=== PATIENT | female | born 1960 | race Caucasian/White ===

== ENCOUNTER 2022-03-28 14:41 | Emergency (ER) | payer BC ==
[~2022-03-28] VITALS: Ht 149.9 cm; Wt 3.6 kg
[2022-03-28 14:48] VITALS: BP 140/75
--- NOTE | 2022-03-28 14:56 | NUR ---
PT AMB TO BED 11.
--- NOTE | 2022-03-28 15:49 | NUR ---
FLU AND COVID SWAB COLLECTED. HANDED TO ANTICHECKING [employer] COMFORT AT BEDSIDE.
--- NOTE | 2022-03-28 15:50 | NUR ---
XRAY AT BEDSIDE.
[2022-03-28 15:58] LABS: BASOPHILS % (AUTO) 0.6 % (0.0-2.0); EOSINOPHILS % (AUTO) 0.7 % (0.0-4.0); HEMOGLOBIN 13.4 g/dL (12.0-16.0); LYMPHOCYTES # (AUTO) 2.6 K/uL (2.5-16.5); MEAN CORPUSCULAR HEMOGLOBIN 30 pg (27-31); MEAN CORPUSCULAR HGB CONC 34 g/dL (33-37); MONOCYTES # (AUTO) 0.4 K/uL (0.8-1.0); MONOCYTES % (AUTO) 5.6 % (1.7-9.3); NEUTROPHILS # (AUTO) 4.1 K/uL (1.8-7.7); NEUTROPHILS % (AUTO) 57.1 % (42.2-75.2); PLATELET COUNT (AUTO) 307 K/uL (140-450); RED BLOOD CELL COUNT(AUTO) 4.53 MIL/uL (4.20-5.40); RED CELL DISTRIBUTION WIDTH 15.3 % (11.6-13.7); WHITE BLOOD COUNT (AUTO) 7.1 K/uL (4.8-10.8)
--- NOTE | 2022-03-28 16:19 | NUR ---
61F PRESENTS TO ED WITH COMPLAINT OF RIGHT UPPER LEG PAIN. REPORTS 8/10 PAIN WITH AMBULATION AND MOVEMENT OF EXTREMITY. PT WAS SEEN AT CLINIC TODAY AND REFERRED TO ED TO RULE OUT DVT. NO REDNESS, SWELLING NOTED. DENIES SOB, CP, DENIES PRIOR HISTORY OF DVT. PT REPORTS SHE TAKES MOTRIN WITH TEMPORARY RELIEF.
[2022-03-28 16:22] LABS: ALBUMIN 3.2 g/dL (3.4-5.0); ANION GAP 14.2 (8-16); CARBON DIOXIDE 23.4 mmol/L (21-32); CREATININE 0.6 mg/dL (0.6-1.3); POTASSIUM 3.6 mmol/L (3.5-5.1); TOTAL BILIRUBIN 0.3 mg/dL (0.0-1.0)
--- NOTE | 2022-03-28 16:23 | NUR ---
ULTRASOUND AT BEDSIDE.
[2022-03-28] MEDS ORDERED: DICL100G5 TP (18:03)
[2022-03-28] MEDS ORDERED: IBUP-2218 PO (18:03)
--- NOTE | 2022-03-28 19:07 | NUR ---
Patient discharged with v/s stable. Written and verbal after care instructions given ABOUT THROMBOPHLEBITIS and explained. Patient alert, oriented and verbalized understanding of instructions. Ambulatory with steady gait. All questions addressed prior to discharge. ID band removed. Patient advised to follow up with PMD. Rx of IBUPROFEN AND DICLOFENAC SODIUM given. Patient educated on indication of medication including possible reaction and side effects. Opportunity to ask questions provided and answered.
== END 2022-03-28 19:07 | disposition home or self-care (01) ==
LOC: MED 14:41
DX: I80.01 Phlebitis and thrombophlebitis of superficial vessels of right lower extremity (principal); Z20.822 Contact with and (suspected) exposure to COVID-19; I10 Essential (primary) hypertension; Z79.899 Other long term (current) drug therapy
CPT/HCPCS: 36415; 73552; 80053; 85025; 85651; 86140; 87426; 87804; 93971; 99285; Q0092